=== PATIENT | female | born 1970 | race African-American/Black ===

== ENCOUNTER 2017-04-29 02:33 | Inpatient (IN) | payer OTHER ==
[2017-04-29] MEDS ORDERED: Nitroglycerin 50 MG/250 ML BOT 250 ML ONE (02:45)
[2017-04-29] MEDS ORDERED: Albuterol Sulfate 2.5 mg/3 ml Neb ONE (02:50)
[2017-04-29] MEDS ORDERED: Azithromycin 500 MG VIAL ONE (03:01)
[2017-04-29] MEDS ORDERED: methylPREDNISolone Sod Succ/PF 125 MG/2 ML VIAL ONE (03:01)
[2017-04-29 03:13] LABS: Oxyhemoglobin 81.3 % (94.0-97.0); Sodium 140 mmol/L (135-148)
[2017-04-29] MEDS ORDERED: Magnesium 2 GM/NS 0.9% 50 ML 2 GM in Premix Bag 1 BAG IVPB SCH (03:15)
[2017-04-29] MEDS ORDERED: Aspirin 300 MG Suppository ONE (03:16)
[2017-04-29 03:17] LABS: Modified Allen's Test POSITIVE; PIP 13 cmH2O; Pressure Support 7 cmH2O; Spontaneous Rate 27 min; Vent YES
[2017-04-29 03:29] LABS: Mean Platelet Volume 9.4 fL (7.4-10.4); Red Blood Cell (RBC) Count 4.26 mill/uL (4.20-5.40); White Blood Cell (WBC) Count 10.6 thou/uL (4.8-10.8)
[2017-04-29 03:31] LABS: Prothrombin Time 13.9 SEC (12.0-14.7)
[2017-04-29 03:32] LABS: PTT 29.4 SEC (22.9-36.1)
[2017-04-29 03:36] LABS: Lactic Acid - Sepsis 2.5 mmol/L (0.5-2.2)
[2017-04-29 03:42] LABS: Band 1 % (5-11); Neutrophil 40 % (42-75); Reactive Lymphocytes 1 % (0-10)
[2017-04-29 03:43] LABS: Troponin I Less than 0.010 ng/mL (< 0.028)
[2017-04-29 03:47] LABS: Bilirubin Negative (Negative); Blood, Urine Trace (Negative); Glucose, Urine (Dipstick) Negative (Negative); Ketone, Urine Negative (Negative); Nitrite Negative (Negative); Protein, Urine (Dipstick) 300 mg/dL (Neg-Trace); Urobilinogen 0.2 mg/dL (0.2-1.0)
[2017-04-29 03:49] LABS: Bacteria/HPF None Seen HPF (None Seen); Hyaline Casts/LPF 4-6 HYALINE CAST LPF (0-3 Hyaline); RBC/HPF 0-3 HPF (0-3); Squamous Epithelial 0-3 HPF (0-3); WBC/HPF 0-3 HPF (0-3)
[2017-04-29 03:55] LABS: ALT (SGPT) 19 U/L (8-55); AST (SGOT) 38 U/L (5-34); Alkaline Phosphatase 85 U/L (40-150); Anion Gap 16 mmol/L (10-20); BUN (Urea Nitrogen) 12 mg/dL (7.0-18.7); Bilirubin, Total 0.9 mg/dL (0.2-1.2); CK (CPK) 258 U/L (29-168); Calc. Creatinine Clearance 0 mL/min (70-130); Calcium 8.9 mg/dL (7.8-10.44); Carbon Dioxide 20 mmol/L (22-29); Chloride 103 mmol/L (98-107); Estimated GFR-MDRD 62; Globulin 4.7 g/dL (2.4-3.5); Lipase 35 U/L (8-78); Protein, Total 8.5 g/dL (6.0-8.3)
[2017-04-29] MEDS ORDERED: Potassium Chloride 20 MEQ/100 ML PREMIX BAG ONE (04:06)
[2017-04-29] MEDS ORDERED: Ondansetron HCl/PF 4 MG/2 ML Vial IVP PRN (04:54)
[2017-04-29] MEDS ORDERED: Acetaminophen 325 MG TAB PO PRN (04:54)
[2017-04-29] MEDS ORDERED: Nitroglycerin 50 MG/250 ML BOT 250 ML IVPB SCH (05:00)
[2017-04-29 05:30] VITALS: BMI 30.9
[2017-04-29] MEDS ORDERED: Furosemide 100 MG/10 ML VIAL SLOW IVP SCH (06:00)
[2017-04-29 06:27] LABS: Troponin I 0.017 ng/mL (< 0.028)
--- NOTE | 2017-04-29 08:19 | HP ---
REASON FOR ADMISSION/CHIEF COMPLAINT: Shortness of breath. HISTORY OF PRESENT ILLNESS: Ms. Maldonado is a 46-year-old female with past medical history of severe heart disease with decreased LV function with ejection fraction of 15%, who came be cause of shortness of breath. The patient ran out of her medication a few days ago for her blood pre ssure and she started having shortness of breath, but no chest pain and no cough. The patient did no t have any chest pain either. The patient called the EMS, they found the patient in respiratory dist ress and they gave her DuoNebs and Solu-Medrol on the way to the hospital. Her sats have improved, b ut in the ER, the patient was again in respiratory failure. She was put on BiPAP. She was found to be in acute CHF and received Lasix and potassium and magnesium sulfate as well. Also started on nitr oglycerin drip because of high blood pressure. The patient was admitted to CCU for further evaluatio n. Currently, the patient is feeling slightly better. The patient also received Rocephin and Zithro max in the ER. Her initial blood pressure was 180/115 in the ER. PAST MEDICAL HISTORY: 1. Hypertension. 2. Severe hypertensive heart disease. 3. Marked decrease in left ventricular function with EF was 15-20%. Echo done. 4. Possible cardiorenal syndrome, noncompliant with medications PAST SURGICAL HISTORY: Status post . CURRENT MEDICATIONS: The patient is supposed to be on lisinopril 20 mg daily, levothyroxine 100 mcg daily, Lasix 40 mg daily, KCl 20 mEq daily. FAMILY HISTORY: Nothing contributory. SOCIAL HISTORY: The patient lives with family. REVIEW OF SYSTEMS: CARDIOVASCULAR: No chest pain, no shortness of breath. RESPIRATORY: No cough, congestion, no fever. GASTROINTESTINAL: No nausea or vomiting. No abdominal pain. GENITOURINARY: No dysuria. SE[employer] F[employer]ER: No headache, no dizziness. PHYSICAL EXAMINATION: GENERAL: The patient is alert, awake, oriented x3. VITAL SIGNS: Temperature 98, pulse 76, respirations 17, blood pressure initially 180/115, now 130/70 . HEENT: Head is normocephalic, atraumatic. Pupils equal and reactive to light. Nasopharynx is pale and dry. NECK: Supple. No JVD. LUNGS: Clear. Breath sounds diminished bilaterally. Percussion dull bilaterally. Rales present in both bases. CARDIAC: S1, S2 regular. ABDOMEN: Soft, no distention, no tenderness. No organomegaly. Normal bowel sounds. RECTAL: Deferred. NEUROLOGIC: No focal deficits. LABORATORY AND X-RAY FINDINGS: CBC shows WBC 7.6, hemoglobin 12, hematocrit 40, platelets 220. [place] bolic panel shows sodium 136, potassium 3.6, chloride 103, CO2 20, urea nitrogen 12, creatinine 1.1, glucose 207. BNP 178. CK-MB 2.7, troponin less than 0.01, pCO2, 65. Chest x-ray shows pulmonary ed thierno. EKG shows sinus tachycardia with heart rate of 105 per minute, no acute ST-T wave changes seen. ASSESSMENT: 1. Acute respiratory failure secondary to acute on chronic congestive heart failure, combined systol ic and diastolic. 2. Patient is noncompliant with medication. 3. Hypokalemia. 4. Hypertensive emergency. 5. Hypertensive heart disease. PLAN: 1. CCU monitoring. 2. Lasix 40 mg IVP q.12h. 3. KCl replacement. 4. Activity: As tolerated. 5. Diet; cardiac. 6. Allergies: No known drug allergies. 7. Hep-lock. 8. BiPAP. 9. Continue home medications. 10. Pulmonary consult.
[2017-04-29] MEDS ORDERED: Potassium Chloride 20 MEQ TAB PO SCH (08:30)
[2017-04-29] MEDS ORDERED: Magnesium 2 GM/NS 0.9% 100 ML 2 GM in Premix Bag 1 BAG IVPB PRN (08:44)
[2017-04-29] MEDS ORDERED: Potassium Phosphate 15 MMOL in Sodium Chloride 0.9% 250 ML 250 ML IV PRN (08:44)
[2017-04-29] MEDS ORDERED: Potassium Chloride 40 MEQ in Premix Bag 1 BAG IVPB PRN (08:44)
[2017-04-29] MEDS ORDERED: Potassium Chloride 40 MEQ in Sodium Chloride 0.9% 250 ML 250 ML IVPB PRN (08:44)
[2017-04-29] MEDS ORDERED: Magnesium Oxide 400 MG TAB PO PRN ×2 (08:44)
[2017-04-29] MEDS ORDERED: Potassium Phosphate 12 MMOL in Sodium Chloride 0.9% 250 ML 250 ML IV PRN (08:44)
[2017-04-29] MEDS ORDERED: Potassium Chloride 20 MEQ TAB PO PRN (08:44)
[2017-04-29] MEDS ORDERED: Potassium Phosphate 9 MMOL in Sodium Chloride 0.9% 100 ML IVPB PRN (08:44)
[2017-04-29] MEDS ORDERED: Aspirin 325 MG TAB PO SCH (09:00)
--- NOTE | 2017-04-29 09:07 | CON ---
DATE OF CONSULTATION: 04/29/2017 REASON FOR CONSULTATION: Acute respiratory failure. HISTORY OF PRESENT ILLNESS: The patient is a 46-year-old female who presented to the emergency room last night with a 3-day history of shortness of breath. She was found to be in acute respiratory danielle lure. She was started on BiPAP and given diuretics and has responded appropriately. This morning, s he was awake and alert and I was able to take the BiPAP off and talk to her. PAST MEDICAL HISTORY: 1. Congestive heart failure - last ejection fraction in the [place] computer noted 35%-40%. Dr. Baxter's history and physical indicates down for 15%-20%. 2. Hypertension. 3. Possible cardiorenal syndrome. PAST SURGICAL HISTORY: . MEDICATIONS PRIOR TO ADMISSION: Lisinopril, levothyroxine, Lasix, and potassium. FAMILY MEDICAL HISTORY: Unremarkable. SOCIAL HISTORY: Lives with family. She quit smoking a few months ago. PHYSICAL EXAMINATION: VITAL SIGNS: Temperature 97.9, pulse 83, blood pressure 129/87, O2 saturation 96%. GENERAL: She is awake, alert, and in no acute respiratory distress. HEENT: Unremarkable. NECK: No JVD. LUNGS: A few crackles at the bases, otherwise clear. CARDIAC: S1, S2 regular. No audible murmur. ABDOMEN: Soft, slightly distended. EXTREMITIES: She has trace edema in her ankle region. LABORATORY DATA: White blood cell count 10, hematocrit 40, platelet count 220. INR 1.1. PH 7.36, p CO2 of 43, pO2 53. Sodium 136, potassium 3.3, chloride 103, CO2 20, BUN 12, creatinine 1.1, glucose 227. BNP 178. TSH 65.8. X-ray shows diffuse bilateral pulmonary edema, right greater than left. ASSESSMENT: 1. Congestive heart failure - acute systolic dysfunction. 2. Hypertension. 3. Hypothyroid with grossly elevated TSH. 4. Hyperglycemia. 5. Past history of tobacco abuse. PLAN: 1. Hold the BiPAP. 2. Continue diuretics. 3. Would restart her thyroid medication, restart her carvedilol and lisinopril.
[2017-04-29] MEDS: Furosemide 40 MG/4 ML VIAL SLOW IVP SCH ×2 (09:29→20:03)
[2017-04-29] MEDS: Famotidine 20 MG TAB PO SCH ×2 (09:29→20:03)
[2017-04-29] MEDS: Lisinopril 20 MG TAB PO SCH (09:29)
[2017-04-29] MEDS: Enoxaparin Sodium 40 MG/0.4 ML SYRINGE SC SCH (09:30)
--- NOTE | 2017-04-29 09:58 | RAD ---
PORTABLE SEMI UPRIGHT FRONTAL CHEST RADIOGRAPH: Date: 04-29-17 Comparison: 12-12-14 History: Difficulty breathing. FINDINGS: There is extensive interstitial and alveolar opacity seen throughout both lungs, right greater than l eft, with confluent airspace disease throughout the majority of the right lung and involving the left lung base. Cardiac silhouette is prominent. No pneumothorax is seen. IMPRESSION: Extensive abnormal interstitial and alveolar opacity noted bilaterally. This suggests prominent pulmo nary edema. Infectious pneumonitis, aspiration, and pulmonary hemorrhage are possibilities. Short ter m follow up imaging following treatment to document resolution advised. POS: STEPHANIE
[2017-04-29 12:21] LABS: Anion Gap 19 mmol/L (10-20); BUN (Urea Nitrogen) 11 mg/dL (7.0-18.7); Calc. Creatinine Clearance 83 mL/min (70-130); Carbon Dioxide 22 mmol/L (22-29); Chloride 99 mmol/L (98-107); Estimated GFR-MDRD 59
[2017-04-29 12:28] LABS: Troponin I 0.014 ng/mL (< 0.028)
[2017-04-29] MEDS: Carvedilol 3.125 MG TAB PO SCH (17:59)
[2017-04-29] MEDS ORDERED: FLU VACC QS2017-18 36 mo. & older 0.5 ML SYRINGE IM ONE (21:00)
[2017-04-30 04:58] LABS: Anion Gap 10 mmol/L (10-20); BUN (Urea Nitrogen) 19 mg/dL (7.0-18.7); Calc. Creatinine Clearance 90 mL/min (70-130); Calcium 9.3 mg/dL (7.8-10.44); Carbon Dioxide 29 mmol/L (22-29); Chloride 101 mmol/L (98-107); Estimated GFR-MDRD 65
[2017-04-30] MEDS: Levothyroxine Sodium 100 MCG TAB PO SCH (05:20)
--- NOTE | 2017-04-30 08:11 | PRG ---
DATE OF SERVICE: 04/30/2017 This morning, awake, alert, responsive. Denies any pain or shortness of breath. She quit smoking 3 days ago. PHYSICAL EXAMINATION: VITAL SIGNS: Blood pressure 101/58, temperature 98, pulse 60, sats 100%. CHEST: Chest reveals decreased breath sounds, no wheezing. CARDIAC: Normal S1-S2. ABDOMEN: Soft. No masses. LABORATORY AND X-RAY FINDINGS: Chest x-ray yesterday showed extensive CHF findings. IMPRESSION: 1. Congestive heart failure. 2. Hypertensive. 3. Hyperthyroidism 4. Tobacco abuse. 5. Chronic obstructive pulmonary disease. 6. Poor compliance with the patient taking her medication. PLAN: Continue diuretics, continue neb treatments, supportive care. Await input from Cardiology. She can probably be transferred to a monitored bed.
[2017-04-30] MEDS: Carvedilol 3.125 MG TAB PO SCH (08:56)
[2017-04-30] MEDS: Famotidine 20 MG TAB PO SCH ×2 (08:56→20:01)
[2017-04-30] MEDS: Lisinopril 20 MG TAB PO SCH (08:56)
[2017-04-30] MEDS: Furosemide 40 MG/4 ML VIAL SLOW IVP SCH (09:00)
[2017-04-30] MEDS: Enoxaparin Sodium 40 MG/0.4 ML SYRINGE SC SCH (09:01)
--- NOTE | 2017-04-30 12:03 | CON ---
DATE OF SERVICE: 04/30/2017 REASON FOR CONSULTATION: Heart failure. HISTORY OF PRESENT ILLNESS: Mrs. Maldonado is a very pleasant 46-year-old -[place] female who comes to the hospital for shortness of breath. She had been getting increasingly more short of ja th for 3 days prior to being admitted. She came in and was found to be in heart failure. She has a history of nonischemic cardiomyopathy. She had an EF of 15-20% back in 2014. She was started on med ications after heart catheterization showed no coronary artery disease and a repeat echo a year later showed an EF of 35-40%. She actually has been followed by a supervisor poultry farm in [place] and in [facility], Dr. Huizar and has had her lisinopril switched to losartan due to cough. She is feeling much better after IV diuresis. On her admission, her blood pressure was 180/115, so she was cataloged wit h hypertensive emergency. She tells me that she has not taken any of her medicines for the last week and a half to 2 weeks because she felt her neck was swelling up. She also has not been taking any o f her thyroid medications. PAST MEDICAL HISTORY: Include, 1. Hypertension. 2. Hypothyroidism. 3. Nonischemic cardiomyopathy. 4. Noncompliance. PAST SURGICAL HISTORY: 1. . 2. Heart catheterization as above. OUTPATIENT MEDICATIONS: 1. Losartan 50 mg a day. 2. Toprol-XL 25 mg a day. 3. Levothyroxine 100 mcg a day. 4. Lasix 20 mg daily. 5. Potassium chloride 20 mEq a day. FAMILY HISTORY: Noncontributory. SOCIAL HISTORY: No alcohol, tobacco or drugs. REVIEW OF SYSTEMS: A 12-point review of systems was done and is all negative unless stated in the hi story of present illness. PHYSICAL EXAMINATION: VITAL SIGNS: Temperature 97.8, pulse 63, respiratory 18, satting 93% on room air, blood pressure 110 /60. GENERAL: Awake, alert, oriented x3, in no distress. HEENT: Normocephalic, atraumatic. NECK: Supple, no JVD is appreciated. CHEST: Clear to auscultation. CARDIOVASCULAR: S1, S2, no S3 or S4, no murmurs. ABDOMEN: Soft. Positive bowel sounds. EXTREMITIES: Trace lower extremity edema bilaterally. SKIN: Warm and dry. LABORATORY WORK: Reviewed, unremarkable except for lactic acid of 6.3 and a potassium of 3.4 yesterd ay, better now 4.3, creatinine 1.18 down to 1.09. Troponin was negative x3 and BNP was 178. TSH was 65. UA showed 300 protein, trace blood, 4-6 hyaline casts. EKG was reviewed. ASSESSMENT AND PLAN: 1. Acute on chronic systolic heart failure. 2. Medication noncompliance. 3. Severe profound hypothyroidism. 4. Hypertensive emergency, likely related to noncompliance. PLAN: We will switch her IV Lasix to p.o. as she is much more euvolemic today. We will also put her on her home dose of Toprol instead of Coreg and we will get her ARB switched over to Entresto as she is agreeable and doing this. She did receive a dose of lisinopril yesterday, so we will have to clark t 3 days from this to wash out of her blood pressures, it is on borderline low as well. She will get her first dose of Entresto on Wednesday morning. Today is Wednesday. She should be able to be discharged home tomorrow and start Entresto as an outpatient at home. Echocardiogram to be done and pending. Thank you for letting us to participate in the care of your patient. We will follow.
[2017-04-30 12:23] LABS: Free T3 Less than 1.00 pg/mL (1.71-3.71)
[2017-04-30] MEDS: Furosemide 20 MG TAB PO SCH (15:00)
[2017-04-30] MEDS ORDERED: Acetaminophen 325 MG TAB PO PRN (18:04)
[2017-05-01] MEDS: Levothyroxine Sodium 100 MCG TAB PO SCH (05:33)
[2017-05-01] MEDS: Famotidine 20 MG TAB PO SCH ×2 (08:59→20:21)
[2017-05-01] MEDS: Enoxaparin Sodium 40 MG/0.4 ML SYRINGE SC SCH (08:59)
[2017-05-01] MEDS: Furosemide 20 MG TAB PO SCH ×2 (08:59→13:46)
--- NOTE | 2017-05-01 15:17 | PDOC.CTH ---
Cardiology Progress Note - Subjective She is doing well. Her breathing is back to baseline. - Objective Vital Signs Temp Pulse Resp BP Pulse Ox 05/01/17 11:35 97.7 F 64 20 113/67 97 05/01/17 08:54 97.6 F 62 16 118/71 99 05/01/17 04:00 97.6 F 60 16 117/72 99 Weight 195 lb 04/30/17 05/01/17 05/02/17 06:59 06:59 06:59 Intake Total 1010 1520 Output Total 4130 1985 Balance -3120 -465 - Physical Examination General/Neuro: alert & oriented x3, NAD Neck: no JVD present Lungs: CTA, unlabored respirations Heart: RRR Abdomen: NT/ND Extremities: other: (no edema.) - Telemetry Telemetry Rhythm: NSR - Labs Result Diagrams: 04/29/17 02:50 04/30/17 04:01 Troponin/CKMB CK-MB (CK-2) 2.7 ng/mL (0-6.6) 04/29/17 02:50 Troponin I 0.014 ng/mL (< 0.028) 04/29/17 11:52 - Assessment/Plan 1. Acute on chronic systolic heart failure 2. Medication non compliance. 3. HTN poorly controlled due to non compliance. 4. Hypothyroidism, uncontrolled secondary to non compliance. PLAN: - BP much better after restarting her home meds. - Stopped ACEI yesterday and she will start Entresto Wednesday. - PO lasix now. Improved CHF with diuresis. - May discharge home any time from cardiac perspective. - Follow up in the office in 1 month
--- NOTE | 2017-05-01 23:34 | PRG ---
DATE OF SERVICE: 05/01/2017 SERVICE: Pulmonary Medicine. INTERVAL HISTORY: The patient is doing great from a respiratory standpoint. She is not having any s hortness of breath or headache. She is on room air and denies any fevers, chills, nausea, vomiting, or overnight events. PHYSICAL EXAMINATION: VITAL SIGNS: Afebrile, pulse 62, blood pressure 112/62, respirations 18, saturation 96% on room air. GENERAL: Patient is awake, alert, in no apparent distress. LUNGS: Excellent air entry. There is no prolonged expiratory phase, wheezing, rhonchi, or crackles. HEART: Normal rate, regular. ABDOMEN: Soft, nontender, nondistended. Bowel sounds positive. MUSCULOSKELETAL: No cyanosis or clubbing. No pitting in the bilateral lower extremities. NEUROLOGIC: Grossly nonfocal. LABORATORY DATA: TSH is 43. Free T3 and free T4 are below the assay limits of normal. Blood cultur es x2 and urine cultures negative to date. ASSESSMENT: 1. Acute hypoxic respiratory failure, resolved. 2. Hypertensive emergency. 3. Acute on chronic systolic and diastolic heart failure. 4. Chronic obstructive pulmonary disease. 5. Tobacco abuse. 6. Medical noncompliance. 7. Hypothyroidism. PLAN: The patient has essentially returned to baseline. She has no complaints of difficulty with br eathing and is on room air. At this point, Pulmonary will follow intermittently. Dr. Stovall will resu me care on Wednesday.
[2017-05-02] MEDS: Levothyroxine Sodium 100 MCG TAB PO SCH (05:44)
[2017-05-02] MEDS ORDERED: Sacubitril 24.5 MG/Valsartan 25.5 MG TABLET PO SCH (09:00)
[2017-05-02] MEDS: Famotidine 20 MG TAB PO SCH (09:07)
[2017-05-02] MEDS: Furosemide 20 MG TAB PO SCH ×2 (09:07→15:07)
[2017-05-02] MEDS: Enoxaparin Sodium 40 MG/0.4 ML SYRINGE SC SCH (09:08)
[2017-05-02 12:28] VITALS: TEMP 97.7
[2017-05-02] MEDS ORDERED: Milk Of Magnesia 30 ML UDCUP PO PRN (14:25)
[2017-05-02] MEDS ORDERED: Milk Of Magnesia 30 ML UDCUP PO SCH (14:30)
--- NOTE | 2017-05-02 14:56 | PDOC.CTH ---
Cardiology Progress Note - Subjective She is feeling back to baseline. She has been approved for the lifevest and will get set up tomorrow. - Objective Vital Signs Temp Pulse Pulse Pulse Resp BP BP 05/02/17 11:30 97.7 F 61 18 05/02/17 11:24 71 50 L 131/78 117/73 05/02/17 09:16 65 05/02/17 08:00 97.9 F 58 L 18 05/02/17 04:00 97.4 F L 63 16 BP BP Pulse Ox Pulse Ox Pulse Ox 05/02/17 11:30 131/78 100 05/02/17 11:24 96 99 05/02/17 09:16 108/61 05/02/17 08:00 110/60 96 05/02/17 04:00 130/80 99 Weight 192 lb 3.2 oz 05/01/17 05/02/17 05/03/17 06:59 06:59 06:59 Intake Total 1520 1220 Output Total 1985 900 Balance -465 320 - Physical Examination General/Neuro: alert & oriented x3, NAD Neck: no JVD present Lungs: CTA, unlabored respirations Heart: RRR Abdomen: NT/ND Extremities: other: (no edema.) - Telemetry Telemetry Rhythm: NSR - Labs Result Diagrams: 04/29/17 02:50 04/30/17 04:01 Troponin/CKMB CK-MB (CK-2) 2.7 ng/mL (0-6.6) 04/29/17 02:50 Troponin I 0.014 ng/mL (< 0.028) 04/29/17 11:52 - Assessment/Plan 1. Acute on chronic systolic heart failure 2. Medication non compliance. 3. HTN poorly controlled due to non compliance. 4. Hypothyroidism, uncontrolled secondary to non compliance. PLAN: - BP much better after restarting her home meds. - Start Entresto Wednesday, Rx sent to [facility] in [place] per pts request. - PO lasix now. Improved CHF with diuresis. - lifevest has been approved and will be set up tomorrow at home. She does not want to wait until tomorrow here as she says she will loose her housing. I explained to her the possibility of sudden cardiac and she understands and verbalizes understanding of this and she still wants to leave and have it set up tomorrow. - May discharge home. - Follow up in the office in 1 month
[2017-05-02 16:19] VITALS: BP 128/76
== END 2017-05-02 16:43 | disposition home or self-care (01) | DRG 291 ==
LOC: ERS 02:33 → CCU 02:50 → 2NO 04-30 09:39
PROVIDERS: ADMIT Internal Medicine; ATTEND Internal Medicine
PROC: 5A09457 Assistance with Respiratory Ventilation, 24-96 Consecutive Hours, Continuous Positive Airway Pressure (ICD-10-PCS; principal; 2017-04-29)
DX: I11.0 Hypertensive heart disease with heart failure (principal); J96.01 Acute respiratory failure with hypoxia; I16.1 Hypertensive emergency; I50.43 Acute on chronic combined systolic (congestive) and diastolic (congestive) heart failure; E87.6 Hypokalemia; E03.9 Hypothyroidism, unspecified; F17.210 Nicotine dependence, cigarettes, uncomplicated; R73.9 Hyperglycemia, unspecified; Z91.19 Patient's noncompliance with other medical treatment and regimen
CPT/HCPCS: 36415; 51701; 71010; 80048; 80053; 81003; 81015; 82550; 82553; 82805; 83605; 83690; 83880; 84439; 84443; 84481; 84484; 85025; 85610; 85730; 87040; 87086; 93005; 93306; 93798; 94640; 94660; 96365; 96366; 96368; 96375; J0456; J0696; J1650; J1940; J2930; J3475; J3480; J7611

== ENCOUNTER 2019-02-24 13:06 | Outpatient (CLI) | payer OTHER ==
--- NOTE | 2019-02-24 14:06 | ULT ---
Thyroid sonogram HISTORY: Thyroid enlargement. Goiter. FINDINGS: The right thyroid lobe measures up to 5.4 cm, the left 5.2 cm, and the Isthmus 0.3 cm thick ness. There is heterogeneous echotexture diffusely throughout the thyroid gland. No focal mass. IMPRESSION: Diffuse thyromegaly. No focal mass.
== END 2019-02-24 13:07 | disposition home or self-care (01) ==
LOC: BICULT 13:06
PROVIDERS: ATTEND Nurse Practitioner Family
DX: E04.9 Nontoxic goiter, unspecified (principal); E01.0 Iodine-deficiency related diffuse (endemic) goiter
CPT/HCPCS: 76536

== ENCOUNTER 2020-07-25 22:21 | Inpatient (IN) | payer OTHER ==
[~2020-07-25 22:21] MED LIST: Iopamidol-370 76% 500 ML 1 ML ONE
[2020-07-25] MEDS ORDERED: Nitroglycerin 2% Ointment 1 INCH/1 GM Packet ONE (22:40)
[2020-07-25 22:54] LABS: #Basophils 0.1 thou/uL (0.0-0.2); #Eosinphils 0.1 thou/uL (0.0-0.7); #Lymphocytes 2.7 thou/uL (1.20-3.40); #Monocytes 0.2 thou/uL (0.11-0.59); #Neutrophils 4.2 thou/uL (1.40-6.50); %Basophils 1.8 % (0.0-1.0); %Lymphocytes 36.3 % (21.0-51.0); %Monocytes 2.9 % (0.0-10.0); %Neutrophils 57.1 % (42.0-75.0); Hemoglobin 12.3 g/dL (12.0-16.0); Mean Corpuscular HGB CONC 32.8 g/dL (32.0-36.0); Mean Corpuscular Hemoglobin 30.5 pg (27.0-31.0); Mean Corpuscular Volume 93.2 fL (78.0-98.0); Mean Platelet Volume 9.3 fL (7.4-10.4); Platelet Count 192 thou/uL (130-400); RBC Distribution Width 14.5 % (11.5-14.5); Red Blood Cell (RBC) Count 4.04 mill/uL (4.20-5.40); White Blood Cell (WBC) Count 7.4 thou/uL (4.8-10.8)
[2020-07-25] MEDS ORDERED: Albuterol 200 PUFF (6.7GM INHALER) ONE (23:02)
[2020-07-25 23:13] LABS: ALT (SGPT) 17 U/L (8-55); AST (SGOT) 26 U/L (5-34); Albumin 4.1 g/dL (3.5-5.0); Alkaline Phosphatase 68 U/L (40-110); Anion Gap 17 mmol/L (10-20); BUN (Urea Nitrogen) 12 mg/dL (7.0-18.7); Bilirubin, Total 0.6 mg/dL (0.2-1.2); CK (CPK) 142 U/L (29-168); Calc. Creatinine Clearance 0 mL/min (70-130); Carbon Dioxide 23 mmol/L (22-29); Chloride 102 mmol/L (98-107); Glucose 131 mg/dL (70-105); Potassium 3.2 mmol/L (3.5-5.1); Protein, Total 8.1 g/dL (6.0-8.3); Sodium 139 mmol/L (136-145)
[2020-07-25 23:35] LABS: CKMB 1.1 ng/mL (0-6.6)
[2020-07-26] MEDS ORDERED: Furosemide 40 MG/4 ML VIAL ONE (00:01)
[2020-07-26] MEDS ORDERED: Ondansetron PF 4 MG/2 ML Vial IVP PRN (01:34)
[2020-07-26] MEDS ORDERED: Ondansetron ODT 4 MG TAB PO PRN (01:34)
[2020-07-26 01:50] LABS: SARS-CoV-2 NAA Rapid Test Not Detected (NotDetected)
[2020-07-26] MEDS ORDERED: Potassium Chloride 20 MEQ TAB PO SCH (02:00)
[2020-07-26 02:14] LABS: Troponin I 0.034 ng/mL (< 0.028)
[2020-07-26 04:31] VITALS: BMI 33.0
[2020-07-26 04:44] LABS: #Basophils 0.1 thou/uL (0.0-0.2); #Eosinphils 0.1 thou/uL (0.0-0.7); #Lymphocytes 2.7 thou/uL (1.20-3.40); #Monocytes 0.7 thou/uL (0.11-0.59); #Neutrophils 9.9 thou/uL (1.40-6.50); %Basophils 0.9 % (0.0-1.0); %Eosinophils 0.4 % (0.0-10.0); %Lymphocytes 19.8 % (21.0-51.0); %Monocytes 5.2 % (0.0-10.0); %Neutrophils 73.6 % (42.0-75.0); Hemoglobin 12.8 g/dL (12.0-16.0); Mean Corpuscular HGB CONC 32.1 g/dL (32.0-36.0); Mean Corpuscular Hemoglobin 30.1 pg (27.0-31.0); Mean Corpuscular Volume 93.9 fL (78.0-98.0); Platelet Count 183 thou/uL (130-400); RBC Distribution Width 14.6 % (11.5-14.5); Red Blood Cell (RBC) Count 4.27 mill/uL (4.20-5.40); White Blood Cell (WBC) Count 13.4 thou/uL (4.8-10.8)
[2020-07-26] MEDS ORDERED: Acetaminophen 325 MG TAB PO PRN (04:59)
[2020-07-26 05:04] LABS: Anion Gap 17 mmol/L (10-20); BUN (Urea Nitrogen) 10 mg/dL (7.0-18.7); Calc. Creatinine Clearance 99 mL/min (70-130); Carbon Dioxide 23 mmol/L (22-29); Chloride 102 mmol/L (98-107); Glucose 109 mg/dL (70-105); Magnesium 2.1 mg/dL (1.6-2.6); Potassium 3.5 mmol/L (3.5-5.1); Sodium 138 mmol/L (136-145)
[2020-07-26 05:07] LABS: Troponin I 0.052 ng/mL (< 0.028)
[2020-07-26] MEDS: Levothyroxine Sodium 100 MCG TAB PO SCH (05:22)
[2020-07-26] MEDS: Furosemide 40 MG/4 ML VIAL SLOW IVP SCH (09:47)
[2020-07-26 18:36] LABS: Free T4 (Free Thyroxine) 0.49 ng/dL (0.70-1.48); Thyroid Stimulating Hormone 36.6251 uIU/mL (0.35-4.94)
[2020-07-26 21:13] LABS: Troponin I 0.035 ng/mL (< 0.028)
[2020-07-27 01:26] LABS: Troponin I 0.036 ng/mL (< 0.028)
[2020-07-27 04:33] LABS: #Basophils 0.1 thou/uL (0.0-0.2); #Eosinphils 0.2 thou/uL (0.0-0.7); #Lymphocytes 3.8 thou/uL (1.20-3.40); #Monocytes 0.4 thou/uL (0.11-0.59); #Neutrophils 3.4 thou/uL (1.40-6.50); %Basophils 1.4 % (0.0-1.0); %Eosinophils 2.8 % (0.0-10.0); %Lymphocytes 48.1 % (21.0-51.0); %Monocytes 5.3 % (0.0-10.0); %Neutrophils 42.4 % (42.0-75.0); Hemoglobin 12.9 g/dL (12.0-16.0); Mean Corpuscular HGB CONC 32.7 g/dL (32.0-36.0); Mean Corpuscular Hemoglobin 30.4 pg (27.0-31.0); Mean Corpuscular Volume 93.1 fL (78.0-98.0); Mean Platelet Volume 9.3 fL (7.4-10.4); Platelet Count 199 thou/uL (130-400); RBC Distribution Width 14.5 % (11.5-14.5); Red Blood Cell (RBC) Count 4.25 mill/uL (4.20-5.40); White Blood Cell (WBC) Count 7.9 thou/uL (4.8-10.8)
[2020-07-27 04:56] LABS: Anion Gap 15 mmol/L (10-20); BUN (Urea Nitrogen) 12 mg/dL (7.0-18.7); Calc. Creatinine Clearance 107 mL/min (70-130); Calcium 9.2 mg/dL (7.8-10.44); Carbon Dioxide 25 mmol/L (22-29); Chloride 100 mmol/L (98-107); Glucose 95 mg/dL (70-105); Potassium 3.6 mmol/L (3.5-5.1); Sodium 136 mmol/L (136-145)
[2020-07-27] MEDS: Levothyroxine Sodium 100 MCG TAB PO SCH (06:07)
[2020-07-27] MEDS: Furosemide 40 MG/4 ML VIAL SLOW IVP SCH ×2 (08:13→20:16)
[2020-07-27] MEDS ORDERED: Sacubitril 49 MG/Valsartan 51 MG TABLET PO SCH (09:00)
[2020-07-27] MEDS ORDERED: Spironolactone 25 MG TAB PO SCH (10:30)
[2020-07-27] MEDS: Sacubitril 49 MG/Valsartan 51 MG TABLET PO SCH (20:15)
[2020-07-28 05:03] LABS: Anion Gap 16 mmol/L (10-20); BUN (Urea Nitrogen) 19 mg/dL (7.0-18.7); Calc. Creatinine Clearance 94 mL/min (70-130); Calcium 9.2 mg/dL (7.8-10.44); Carbon Dioxide 25 mmol/L (22-29); Chloride 100 mmol/L (98-107); Glucose 130 mg/dL (70-105); Potassium 3.1 mmol/L (3.5-5.1); Sodium 138 mmol/L (136-145)
[2020-07-28 05:14] LABS: Hemoglobin 12.9 g/dL (12.0-16.0); Mean Corpuscular HGB CONC 32.4 g/dL (32.0-36.0); Mean Corpuscular Hemoglobin 30.2 pg (27.0-31.0); Mean Corpuscular Volume 93.2 fL (78.0-98.0); Mean Platelet Volume 9.6 fL (7.4-10.4); Platelet Count 208 thou/uL (130-400); RBC Distribution Width 14.5 % (11.5-14.5); Red Blood Cell (RBC) Count 4.27 mill/uL (4.20-5.40); White Blood Cell (WBC) Count 7.2 thou/uL (4.8-10.8)
[2020-07-28 05:15] LABS: Eosinophils 5 % (0-10); Lymphocytes 67 % (21-51); MDiff Complete? YES; Monocytes 3 % (0-10); Neutrophil 25 % (42-75); Platelet Morphology Comment Appears Adequate
[2020-07-28 05:20] LABS: Free T4 (Free Thyroxine) 0.51 ng/dL (0.70-1.48); Thyroid Stimulating Hormone 33.3501 uIU/mL (0.35-4.94)
[2020-07-28] MEDS: Levothyroxine Sodium 100 MCG TAB PO SCH (05:52)
[2020-07-28] MEDS ORDERED: Potassium Chloride 20 MEQ TAB PO SCH (08:30)
[2020-07-28] MEDS: Spironolactone 25 MG TAB PO SCH (09:28)
[2020-07-28] MEDS: Furosemide 40 MG/4 ML VIAL SLOW IVP SCH ×2 (09:29→21:14)
[2020-07-28] MEDS: Sacubitril 49 MG/Valsartan 51 MG TABLET PO SCH ×2 (09:42→21:14)
[2020-07-29 04:46] LABS: #Basophils 0.1 thou/uL (0.0-0.2); #Eosinphils 0.2 thou/uL (0.0-0.7); #Lymphocytes 4.3 thou/uL (1.20-3.40); #Monocytes 0.6 thou/uL (0.11-0.59); #Neutrophils 3.5 thou/uL (1.40-6.50); %Eosinophils 2.4 % (0.0-10.0); %Lymphocytes 49.3 % (21.0-51.0); %Neutrophils 40.2 % (42.0-75.0); Hemoglobin 13.9 g/dL (12.0-16.0); Mean Corpuscular HGB CONC 32.6 g/dL (32.0-36.0); Mean Corpuscular Hemoglobin 30.5 pg (27.0-31.0); Mean Corpuscular Volume 93.7 fL (78.0-98.0); Mean Platelet Volume 9.3 fL (7.4-10.4); Platelet Count 215 thou/uL (130-400); RBC Distribution Width 14.5 % (11.5-14.5); Red Blood Cell (RBC) Count 4.55 mill/uL (4.20-5.40); White Blood Cell (WBC) Count 8.7 thou/uL (4.8-10.8)
[2020-07-29 05:11] LABS: Anion Gap 16 mmol/L (10-20); BUN (Urea Nitrogen) 21 mg/dL (7.0-18.7); Calc. Creatinine Clearance 100 mL/min (70-130); Calcium 9.6 mg/dL (7.8-10.44); Carbon Dioxide 27 mmol/L (22-29); Chloride 100 mmol/L (98-107); Glucose 96 mg/dL (70-105); Potassium 4.7 mmol/L (3.5-5.1); Sodium 138 mmol/L (136-145)
[2020-07-29] MEDS ORDERED: Levothyroxine 150 MCG TAB PO SCH (06:00)
[2020-07-29] MEDS: Sacubitril 49 MG/Valsartan 51 MG TABLET PO SCH (08:56)
[2020-07-29] MEDS: Spironolactone 25 MG TAB PO SCH (08:57)
[2020-07-29] MEDS: Furosemide 40 MG/4 ML VIAL SLOW IVP SCH ×2 (08:57→09:45)
[2020-07-29 17:04] VITALS: BP 141/85; TEMP 97.8
== END 2020-07-29 18:04 | disposition home or self-care (01) | DRG 280 ==
LOC: ERS 22:21 → 2NO 07-26 00:46 → OBSVTOIN 07-26 00:46
PROVIDERS: ADMIT Student in an Organized Health Care Education/Training Program; ATTEND Internal Medicine
DX: I11.0 Hypertensive heart disease with heart failure (principal); J96.01 Acute respiratory failure with hypoxia; I21.A1 Myocardial infarction type 2; Z20.822 Contact with and (suspected) exposure to COVID-19; I50.23 Acute on chronic systolic (congestive) heart failure; E03.9 Hypothyroidism, unspecified; E87.6 Hypokalemia; I42.0 Dilated cardiomyopathy; F32.9 Major depressive disorder, single episode, unspecified; F12.10 Cannabis abuse, uncomplicated; F17.210 Nicotine dependence, cigarettes, uncomplicated; Z79.899 Other long term (current) drug therapy; Z98.890 Other specified postprocedural states; Z79.890 Hormone replacement therapy; Z91.14 Patient's other noncompliance with medication regimen
CPT/HCPCS: 0240U; 36415; 71045; 71275; 80048; 80053; 82550; 82553; 83735; 83880; 84439; 84443; 84484; 85025; 85379; 93005; 93306; 96374; 96376; 97139; G0378; J1940; Q9967